=== PATIENT | female | born 1980 | race Caucasian/White ===

== ENCOUNTER 2016-08-22 20:55 | Emergency (ER) | payer MEDICAID, OTHER ==
[~2016-08-22] VITALS: Ht 165.1 cm; Wt 100.0 kg
[2016-08-22 21:03] VITALS: BP 156/88
== END 2016-08-22 22:50 | disposition left against medical advice (07) ==
LOC: ER 21:00
DX: M54.5 Low back pain (principal); Z53.21 Procedure and treatment not carried out due to patient leaving prior to being seen by health care provider